=== PATIENT | female | born 1960 | race Native Hawaiian/Other Pacific Islander ===

== ENCOUNTER 2016-09-05 11:14 | Observation (INO) | payer OTHER ==
[2016-09-05] MEDS ORDERED: Sodium Chloride 0.9% 500 ML IV STA (11:30)
--- NOTE | 2016-09-05 11:36 | ED PDOC ---
HPI: Chest Pain Time Seen by Provider: 09/05/16 11:22 Chief Complaint (Nursing): Chest Pain Chief Complaint (Provider): Chest pain History Per: Patient History/Exam Limitations: no limitations Onset/Duration Of Symptoms: Days (3) Current Symptoms Are (Timing): Intermittent Episodes Severity: Mild Additional Complaint(s): Chest pain L side off and on with palpitation. Currently no symptoms. No recent cardiac workup. Dyspnea on going up stairs. No weakness, numbness, tingles, headache, dizziness. No leg pain, long distance travel, or hormone tx. Past Medical History Reviewed: Nursing Documentation, Vital Signs Vital Signs: Last Vital Signs Temp 98 F 09/05/16 11:22 Pulse 69 09/05/16 11:22 Resp 18 09/05/16 11:22 BP 127/73 09/05/16 11:22 Pulse Ox 100 09/05/16 11:36 - Medical History PMH: HTN - Surgical History Surgical History: No Surg Hx - Family History Family History: States: Unknown Family Hx - Social History Current smoker - smoking cessation education provided: No Alcohol: None Drugs: Denies - Allergies Allergies/Adverse Reactions: Allergies Allergy/AdvReac Type Severity Reaction Status Date / Time No Known Allergies Allergy Verified 09/05/16 11:22 Review of Systems ROS Statement: Except As Marked, All Systems Reviewed And Found Negative Cardiovascular: Positive for: Chest Pain, Palpitations Respiratory: Positive for: Shortness of Breath Physical Exam - Reviewed Nursing Documentation Reviewed: Yes Vital Signs Reviewed: Yes - Physical Exam Appears: Positive for: Non-toxic, No Acute Distress Head Exam: Positive for: ATRAUMATIC, NORMAL INSPECTION, NORMOCEPHALIC Skin: Positive for: Normal Color, Warm, DRY Eye Exam: Positive for: EOMI, Normal appearance, PERRL ENT: Positive for: Normal ENT Inspection Neck: Positive for: Normal, Painless ROM Cardiovascular/Chest: Positive for: Regular Rate, Rhythm, Chest Non Tender. Negative for: Edema Respiratory: Positive for: CNT, Normal Breath Sounds Gastrointestinal/Abdominal: Positive for: Normal Exam, Bowel Sounds, Soft. Negative for: Tenderness Back: Positive for: Normal Inspection. Negative for: L CVA Tenderness, R CVA Tenderness Extremity: Positive for: Normal ROM. Negative for: Tenderness, Pedal Edema Neurologic/Psych: Positive for: Alert, Oriented - Laboratory Results Result Diagrams: 09/05/16 11:40 09/05/16 11:40 Interpretation Of Abn Labs: no acute - ECG ECG: Positive for: Interpreted By Me, Viewed By Me ECG Rhythm: Positive for: Normal QRS, Normal ST Segment, Sinus Rhythm O2 Sat by Pulse Oximetry: 100 Pulse Ox Interpretation: Normal - Radiology X-Ray: Read By Radiologist X-Ray Interpretation: No Acute Disease - Progress ED Course And Treament: 1327: Pt. took ASA this morning prior to arrival. Pt. stable. Pain free at this time. Will admit for acs workup. Dr. Berrios aware and will admit. Tele obs. Will give further orders when pt. reaches floor. Disposition - Clinical Impression Clinical Impression: Chest pain - Patient ED Disposition Is Patient to be Admitted: Yes Counseled Patient/Family Regarding: Studies Performed, Diagnosis - Disposition Disposition Time: 13:30 Condition: STABLE - Pt Status Changed To: Hospital Disposition Of: Observation - POA Present On Arrival: None Core Measure Indicators: Chest Pain
[2016-09-05 11:49] LABS: BASO # 0.1 K/uL (0.0-0.2); BASO % 0.6 % (0.0-2.0); EOS # 0.1 K/uL (0.0-0.7); EOS % 0.9 % (0.0-4.0); HEMATOCRIT 39.3 % (34.0-47.0); LYMPH # 4.7 K/uL (1.0-4.3); MEAN CELL VOLUME 88.9 fl (81.0-99.0); MEAN CORPUSCULAR HEMOGLOBIN 29.5 pg (27.0-31.0); MEAN CORPUSCULAR HGB CONC 33.2 g/dL (33.0-37.0); MEAN PLATELET VOLUME 7.2 fl (7.2-11.7); MONO # 0.5 K/uL (0.0-0.8); MONO % 5.8 % (0.0-10.0); NEUT # 3.1 K/uL (1.8-7.0); NEUT % 36.7 % (50.0-75.0); NRBC % 0.1 % (0.0-0.0); PLATELET COUNT 290 K/uL (130-400); RED CELL DISTRIBUTION WIDTH 13.1 % (11.5-14.5); WHITE BLOOD COUNT 8.4 K/uL (4.8-10.8)
[2016-09-05 11:58] LABS: ALKALINE PHOSPHATASE 61 U/L (38-126); ALT/SGPT 21 U/L (9-52); AST/SGOT 34 U/L (14-36); BILIRUBIN,TOTAL 0.5 mg/dl (0.2-1.3); BLOOD UREA NITROGEN 16 mg/dl (7-17); CALCIUM 10.2 mg/dL (8.4-10.2); CARBON DIOXIDE 25 mmol/L (22-30); CHLORIDE 107 mmol/L (98-107); GFR AFRICAN-AMERICAN > 60; GLUCOSE,RANDOM 90 mg/dL (65-105); POTASSIUM 3.9 MMOL/L (3.6-5.0); SODIUM 144 mmol/l (132-148); TOTAL PROTEIN 8.3 G/DL (6.3-8.2)
[2016-09-05 12:04] LABS: PARTIAL THROMBOPLASTIN TIME 27.8 SECONDS (23.3-32.5)
--- NOTE | 2016-09-05 12:44 | RAD ---
HISTORY: dyspnea COMPARISON: No prior. FINDINGS: LUNGS: No active pulmonary disease. PLEURA: No significant pleural effusion identified, no pneumothorax apparent. CARDIOVASCULAR: Normal. OSSEOUS STRUCTURES: No significant abnormalities. VISUALIZED UPPER ABDOMEN: Normal. OTHER FINDINGS: None. IMPRESSION: No active disease.
[2016-09-05 19:28] LABS: BASOPHIL 1 % (0-2); EOSINOPHIL 1 % (0-7); NEUTROPHIL 40 % (42-75); REACTIVE LYMPHOCYTES 21 % (0-0); TOTAL CELLS COUNTED 100
[2016-09-06 06:02] VITALS: RESP 18
[2016-09-06 07:39] LABS: CHOLESTEROL 203 mg/dL (0-199)
--- NOTE | 2016-09-06 09:06 | CARD ---
APPROVED REPORT EKG Measurement Heart [id number] <Conclusion> Sinus bradycardia Otherwise normal ECG
[2016-09-06 12:10] VITALS: BP 100/65; PULSE 63; TEMP 98; O2SAT 97
--- NOTE | 2016-09-06 13:36 | CP.PCM.HP ---
History of Present Illness - History of Present Illness History of Present Illness: This is a 56 y/o female admitted for chest pain and palpitations few hrs prior to visit to the ER. has a hx of HTN. Claims that early in the morning, she was worrying a lot about issues at home and suddenly had an episode of palpitation with chest pain hence [facility] ER eval. Past Patient History - Past Medical History & Family History Past Medical History?: No - Past Social History Smoking Status: Never Smoked - CARDIAC Hx Cardiac Disorders: Yes Hx Hypertension: Yes - PULMONARY Hx Respiratory Disorders: No - NEUROLOGICAL Hx Neurological Disorder: No - HEENT Hx HEENT Problems: No - RENAL Hx Chronic Kidney Disease: No - ENDOCRINE/METABOLIC Hx Endocrine Disorders: No - HEMATOLOGICAL/ONCOLOGICAL Hx Blood Disorders: No - INTEGUMENTARY Hx Dermatological Problems: No - MUSCULOSKELETAL/RHEUMATOLOGICAL Hx Musculoskeletal Disorders: No Hx Falls: No - GASTROINTESTINAL Hx Gastrointestinal Disorders: No - GENITOURINARY/GYNECOLOGICAL Hx Genitourinary Disorders: No - PSYCHIATRIC Hx Psychophysiologic Disorder: No Hx Substance Use: No - SURGICAL HISTORY Hx Surgeries: Yes Hx Cholecystectomy: Yes Hx Tubal Ligation: Yes - ANESTHESIA Hx Anesthesia: Yes Hx Anesthesia Reactions: No Hx Malignant Hyperthermia: No Meds Allergies/Adverse Reactions: Allergies Allergy/AdvReac Type Severity Reaction Status Date / Time No Known Allergies Allergy Verified 09/05/16 11:22 Results - Vital Signs Recent Vital Signs: Last Vital Signs Temp 98 F 09/06/16 12:09 Pulse 63 09/06/16 12:09 Resp 18 09/06/16 12:09 BP 100/65 09/06/16 12:09 Pulse Ox 97 09/06/16 12:09 - Labs Result Diagrams: 09/05/16 11:40 09/05/16 11:40 Labs: Laboratory Results - last 24 hr 09/05/16 09/06/16 20:00 07:10 Troponin I < 0.0120 < 0.0120 Triglycerides 202 H Cholesterol 203 H LDL Cholesterol Direct 109 HDL Cholesterol 46
--- NOTE | 2016-09-06 13:38 | CP.PCM.DIS ---
Provider - Provider Date of Admission: 09/05/16 13:31 Attending physician: Osman Berrios MD Time Spent in preparation of Discharge (in minutes): 30 Hospital Course - Lab Results Lab Results: Most Recent Lab Values WBC 8.4 K/uL (4.8-10.8) 09/05/16 11:40 RBC 4.42 Mil/uL (3.80-5.20) 09/05/16 11:40 Hgb 13.0 g/dL (12.0-16.0) 09/05/16 11:40 Hct 39.3 % (34.0-47.0) 09/05/16 11:40 MCV 88.9 fl (81.0-99.0) 09/05/16 11:40 MCH 29.5 pg (27.0-31.0) 09/05/16 11:40 MCHC 33.2 g/dL (33.0-37.0) 09/05/16 11:40 RDW 13.1 % (11.5-14.5) 09/05/16 11:40 Plt Count 290 K/uL (130-400) 09/05/16 11:40 MPV 7.2 fl (7.2-11.7) 09/05/16 11:40 Neut % (Auto) 36.7 % (50.0-75.0) L 09/05/16 11:40 Lymph % (Auto) 56.0 % (20.0-40.0) H 09/05/16 11:40 Guthrie % (Auto) 5.8 % (0.0-10.0) 09/05/16 11:40 Eos % (Auto) 0.9 % (0.0-4.0) 09/05/16 11:40 Baso % (Auto) 0.6 % (0.0-2.0) 09/05/16 11:40 Neut # 3.1 K/uL (1.8-7.0) 09/05/16 11:40 Lymph # 4.7 K/uL (1.0-4.3) H 09/05/16 11:40 Guthrie # 0.5 K/uL (0.0-0.8) 09/05/16 11:40 Eos # 0.1 K/uL (0.0-0.7) 09/05/16 11:40 Baso # 0.1 K/uL (0.0-0.2) 09/05/16 11:40 Neutrophils % (Manual) 40 % (42-75) L 09/05/16 11:40 Band Neutrophils % 1 % (0-2) 09/05/16 11:40 Lymphocytes % (Manual) 32 % (20-50) 09/05/16 11:40 Reactive Lymphs % 21 % (0-0) H 09/05/16 11:40 Monocytes % (Manual) 4 % (0-10) 09/05/16 11:40 Eosinophils % (Manual) 1 % (0-7) 09/05/16 11:40 Basophils % (Manual) 1 % (0-2) 09/05/16 11:40 Platelet Estimate Normal (NORMAL) 09/05/16 11:40 RBC Morphology Normal (NORMAL) 09/05/16 11:40 PT 9.7 SECONDS (9.6-11.2) 09/05/16 11:40 INR 0.93 (0.92-1.08) 09/05/16 11:40 APTT 27.8 SECONDS (23.3-32.5) 09/05/16 11:40 Sodium 144 mmol/l (132-148) 09/05/16 11:40 Potassium 3.9 MMOL/L (3.6-5.0) 09/05/16 11:40 Chloride 107 mmol/L (98-107) 09/05/16 11:40 Carbon Dioxide 25 mmol/L (22-30) 09/05/16 11:40 Anion Gap 17 (10-20) 09/05/16 11:40 BUN 16 mg/dl (7-17) 09/05/16 11:40 Creatinine 0.6 mg/dL (0.7-1.2) L 09/05/16 11:40 Est GFR ( Amer) > 60 09/05/16 11:40 Est GFR (Non-Af Amer) > 60 09/05/16 11:40 Random Glucose 90 mg/dL (65-105) 09/05/16 11:40 Calcium 10.2 mg/dL (8.4-10.2) 09/05/16 11:40 Total Bilirubin 0.5 mg/dl (0.2-1.3) 09/05/16 11:40 AST 34 U/L (14-36) 09/05/16 11:40 ALT 21 U/L (9-52) 09/05/16 11:40 Alkaline Phosphatase 61 U/L (38-126) 09/05/16 11:40 Troponin I < 0.0120 ng/mL (0.00-0.120) 09/06/16 07:10 Total Protein 8.3 G/DL (6.3-8.2) H 09/05/16 11:40 Albumin 4.1 g/dL (3.5-5.0) 09/05/16 11:40 Globulin 4.2 gm/dL (2.2-3.9) H 09/05/16 11:40 Albumin/Globulin Ratio 1.0 (1.0-2.1) 09/05/16 11:40 Triglycerides 202 mg/DL (0-149) H 09/06/16 07:10 Cholesterol 203 mg/dL (0-199) H 09/06/16 07:10 LDL Cholesterol Direct 109 mg/dL (0-129) 09/06/16 07:10 HDL Cholesterol 46 MG/DL (30-70) 09/06/16 07:10 - Hospital Course Hospital Course: This is a 56 y/o female with hx of HTN admitted or chest pain and palpitations. All cardiac enzymes and EKG were normal. She takes [place] for BP and has been stable, She never had any episode of chest pain or palpitations in the past. Discharge Exam - Head Exam Head Exam: ATRAUMATIC, NORMAL INSPECTION, NORMOCEPHALIC - Eye Exam Eye Exam: Normal appearance - Respiratory Exam Respiratory Exam: NORMAL BREATHING PATTERN - Cardiovascular Exam Cardiovascular Exam: REGULAR RHYTHM - GI/Abdominal Exam GI & Abdominal Exam: Normal Bowel Sounds - Neurological Exam Neurological exam: CN II-XII Intact, Oriented x3 - Psychiatric Exam Psychiatric exam: Normal Mood Discharge Plan - Discharge Medications Prescriptions: Aspirin [Adult Low Dose Aspirin EC] 81 mg PO DAILY #90 tablet.dr - Follow Up Plan Condition: STABLE Disposition: HOME/ ROUTINE Additional Instructions: cont meds Cont tx cont PT will send for outpatient holter ECHO and stress test metoprolol ER 25 mg dily
== END 2016-09-06 14:40 | disposition home or self-care (01) ==
LOC: H.ER 11:14 → H.ERHOLD 13:31 → H.TEL 15:14
PROVIDERS: ADMIT Family Medicine; ATTEND Family Medicine
DX: I10 Essential (primary) hypertension (principal); R07.89 Other chest pain; R00.2 Palpitations; Z90.49 Acquired absence of other specified parts of digestive tract; Z98.51 Tubal ligation status